=== PATIENT | female | born 1980 | race Caucasian/White ===

== ENCOUNTER 2019-04-14 08:54 | Day surgery (SDC) | payer OTHER ==
[~2019-04-14] VITALS: Ht 154.9 cm; Wt 67.9 kg
[2019-04-14 09:32] VITALS: Ht 154.9 cm; Wt 67.9 kg
[2019-04-14] MEDS ORDERED: VITAMINS DAILY (09:38)
[2019-04-14] MEDS ORDERED: CETRIZINE HCL (09:38)
[2019-04-14] MEDS ORDERED: LEVO88TA3 PO (09:38)
[2019-04-14] MEDS ORDERED: LIDOCAINE 4% SOLUTION 50 ML BTL ONE (09:52)
[2019-04-14 09:53] VITALS: BP 106/52; PULSE 67; RESP 23
[2019-04-14] MEDS ORDERED: MIDAZOLAM 1 MG/ML 2 ML INJ ONE ×3 (10:54)
[2019-04-14] MEDS ORDERED: FENTAnyl 50 MCG/ML VIAL ONE (10:55)
[2019-04-14 11:00] VITALS: BP 113/58; PULSE 68; RESP 18
== END 2019-04-14 11:14 | disposition home or self-care (01) ==
LOC: GIL 08:54
PROVIDERS: ATTEND Internal Medicine Gastroenterology
DX: R19.5 Other fecal abnormalities (principal); K64.9 Unspecified hemorrhoids; D13.1 Benign neoplasm of stomach; E03.9 Hypothyroidism, unspecified
CPT/HCPCS: 43239; 45378; 84703; 88305; 88312; J2250; J3010; Z7610